=== PATIENT | female | born 1995 | race Asian ===

== ENCOUNTER 2018-01-07 18:36 | Emergency (ER) | payer BC ==
[~2018-01-07] VITALS: Ht 160 cm; Wt 57.6 kg
[2018-01-07 18:52] VITALS: BP_SYST 106
[2018-01-07] MEDS ORDERED: NACL 0.9% 1,000 ML IV ONE (21:19)
[2018-01-07 21:41] LABS: BASOPHILS % (AUTO) 0.1 % (0.0-2.0); EOSINOPHILS % (AUTO) 0.1 % (0.0-4.0); HEMATOCRIT 34.7 % (36-48); HEMOGLOBIN 11.7 g/dL (12.0-16.0); LYMPHOCYTES # (AUTO) 0.5 K/uL (1.0-5.5); LYMPHOCYTES % (AUTO) 5.7 % (20.5-51.5); MEAN CORPUSCULAR HEMOGLOBIN 31 pg (27-31); MEAN CORPUSCULAR HGB CONC 34 % (32-36); MEAN CORPUSCULAR VOLUME 92 fL (79.0-98.0); MONOCYTES # (AUTO) 0.3 K/uL (0.0-1.0); MONOCYTES % (AUTO) 3.1 % (1.7-9.3); NEUTROPHILS # (AUTO) 8.4 K/uL (1.8-7.7); PLATELET COUNT (AUTO) 194 K/uL (130-430); RED BLOOD CELL COUNT(AUTO) 3.78 MIL/uL (4.2-6.2); RED CELL DISTRIBUTION WIDTH 11.8 % (9.0-15.0); WHITE BLOOD COUNT (AUTO) 9.2 K/uL (4.8-10.8)
[2018-01-07 22:07] LABS: ALBUMIN 2.9 g/dL (3.4-4.8); CREATININE 0.53 mg/dL (0.55-1.30); POTASSIUM 3.4 mmol/L (3.5-5.1)
[2018-01-07 22:26] LABS: TOTAL BILIRUBIN 0.6 mg/dL (0.0-1.0)
[2018-01-07 23:19] LABS: BILIRUBIN,URINE NEGATIVE (NEGATIVE); BLOOD, URINE NEGATIVE (NEGATIVE); CLARITY/URINE CLEAR (CLEAR); COLOR,URINE YELLOW (YELLOW); GLUCOSE,URINE NEGATIVE (NEGATIVE); KETONES,URINE 3+ (NEGATIVE); LEUKOCYTE ESTERASE ,URINE TRACE (NEGATIVE); NITRITE, URINE NEGATIVE (NEGATIVE); PROTEIN URINE NEGATIVE (NEGATIVE); UROBILINOGEN,URINE 0.2 (0.2-1.0)
[2018-01-07 23:22] LABS: BACTERIA,URINE MODERATE /HPF (None Seen); RBC,URINE 0-3 /HPF (0-3)
[2018-01-07 23:23] LABS: MUCUS,URINE None Seen /LPF (None Seen)
[2018-01-07 23:53] VITALS: BP_SYST 112
== END 2018-01-07 23:53 | disposition home or self-care (01) ==
LOC: SED 18:36
DX: O21.9 Vomiting of pregnancy, unspecified (principal); Z3A.32 32 weeks gestation of pregnancy
CPT/HCPCS: 36415; 80053; 81000; 83690; 85025; 87086; 96360; 99284; J7030

== ENCOUNTER 2018-02-19 10:55 | Inpatient (IN) | payer OTHER, BC ==
[~2018-02-19] VITALS: Ht 160 cm; Wt 59.9 kg
[~2018-02-19 10:55] MED LIST: LIDOCAINE MPF 2% 5mL VIAL INJ ONE; LR 1,000 ML IV.SOLN IV ONE; MORPHINE SULFATE 10MG/10ML PF AMP EP ONE; NS IRRIG SOLN 1000 ML IR ONE; ONDANSETRON HCL 4 MG/2 ML VIAL IVP ONE; OXYTOCIN 10 UNIT/ML VIAL IV ONE
[2018-02-19] MEDS ORDERED: OXYTOCIN/0.9 % SODIUM CHLORIDE 1,000 ML IV SCH (12:23)
[2018-02-19] MEDS ORDERED: LR 1,000 ML IV ONE (12:23)
[2018-02-19] MEDS ORDERED: NALBUPHINE HCL 10 MG/ML AMP IVP PRN (12:30)
[2018-02-19] MEDS ORDERED: TERBUTALINE SULFATE 1 MG/ML VIAL SUBCUT ONE (13:16)
[2018-02-19] MEDS: LR 1,000 ML IV SCH (13:27)
[2018-02-19 13:32] VITALS: BP_SYST 105
[2018-02-19 14:18] LABS: HEMATOCRIT 35.3 % (36-48); HEMOGLOBIN 12.1 g/dL (12.0-16.0); MEAN CORPUSCULAR HEMOGLOBIN 32 pg (27-31); MEAN CORPUSCULAR HGB CONC 34 % (32-36); MEAN CORPUSCULAR VOLUME 93 fL (79.0-98.0); NEUTROPHILS % (AUTO) 78.7 % (40.0-70.0); PLATELET COUNT (AUTO) 213 K/uL (130-430); RED BLOOD CELL COUNT(AUTO) 3.81 MIL/uL (4.2-6.2); RED CELL DISTRIBUTION WIDTH 12.8 % (9.0-15.0); WHITE BLOOD COUNT (AUTO) 8.2 K/uL (4.8-10.8)
[2018-02-19 14:19] LABS: EOSINOPHILS % (AUTO) 0.6 % (0.0-4.0); LYMPHOCYTES # (AUTO) 1.4 K/uL (1.0-5.5); LYMPHOCYTES % (AUTO) 16.5 % (20.5-51.5); MONOCYTES # (AUTO) 0.3 K/uL (0.0-1.0); MONOCYTES % (AUTO) 4.2 % (1.7-9.3); NEUTROPHILS # (AUTO) 6.5 K/uL (1.8-7.7)
[2018-02-19] MEDS ORDERED: ROPIVACAINE 0.2% 100 ML ONE (19:32)
[2018-02-19] MEDS ORDERED: LR 500 ML IV ONE (19:32)
[2018-02-19] MEDS ORDERED: fentaNYL CITRATE/PF 100 MCG/2 ML AMP ONE (19:32)
[2018-02-19] MEDS ORDERED: FENT2mCg/mL-ROPIVA0.2%/NS EPID 150 ML EP SCH (19:45)
[2018-02-20] MEDS: LR 1,000 ML IV SCH ×2 (02:33→04:30)
[2018-02-20] MEDS ORDERED: ROPIVACAINE 0.2% 200 ML ONE (03:50)
[2018-02-20] MEDS ORDERED: CEFAZOLIN 2 GM IVPB PREMIX 50 ML IV ONE ×2 (07:00→07:18)
[2018-02-20] MEDS ORDERED: LR 1,000 ML IV SCH ×2 (07:56→08:46)
[2018-02-20] MEDS ORDERED: MEPERIDINE HCL/PF 25 MG/ML DISP.SYRIN IVP PRN (08:00)
[2018-02-20] MEDS ORDERED: METOCLOPRAMIDE HCL 10 MG/2 ML VIAL IVP PRN (08:00)
[2018-02-20] MEDS ORDERED: KETOROLAC TROMETHAMINE 60 MG/2 ML VIAL IM PRN (08:00)
[2018-02-20] MEDS ORDERED: MEPERIDINE HCL/PF 50 MG/ML AMP IVP PRN ×2 (08:00)
[2018-02-20] MEDS ORDERED: DIPHENHYDRAMINE INJ 50 MG/ML VIAL IM PRN (08:00)
[2018-02-20] MEDS ORDERED: ONDANSETRON HCL 4 MG/2 ML VIAL IVP PRN (08:00)
[2018-02-20] MEDS ORDERED: MORPHINE SULFATE 10MG/10ML PF AMP EP SCH (08:00)
[2018-02-20] MEDS ORDERED: NALOXONE HCL 0.4 MG/ML AMP (NARCAN) IVP PRN (08:00)
[2018-02-20 08:45] VITALS: BP_SYST 115
[2018-02-20] MEDS ORDERED: OXYTOCIN/0.9 % SODIUM CHLORIDE 1,000 ML IV ONE (08:46)
[2018-02-20] MEDS ORDERED: MEPERIDINE HCL/PF 50 MG/ML AMP IVP ONE (08:50)
[2018-02-20] MEDS ORDERED: MEPERIDINE HCL/PF 50 MG/ML AMP ONE (08:52)
[2018-02-20] MEDS ORDERED: LANOLIN 7 GM OINT. TP PRN (09:00)
[2018-02-20] MEDS ORDERED: DIPH-TET-PERTUS Vaccine 0.5 ML VIAL (ADACEL) I.M. PRN (09:00)
[2018-02-20] MEDS ORDERED: ANUSOL 1 EA SUPP.RECT (PREPARATION H) RC PRN (09:00)
[2018-02-20] MEDS ORDERED: ACETAMINOPHEN 325 MG TABLET PO PRN (09:00)
[2018-02-20] MEDS ORDERED: RHO(D) IMMUNE GLOBULIN/MALTOSE 1500 UNITS/1.3 ML (WINHRO) IM PRN (09:00)
[2018-02-20] MEDS ORDERED: BISACODYL 10 MG/SUPPOSITORY RC PRN (09:00)
[2018-02-20] MEDS ORDERED: MEASLES,MUMPS&RUBELLA VACC/PF 12500 UNIT/0.5 ML VIAL SUBQ PRN (09:00)
[2018-02-20] MEDS ORDERED: OXYCODONE/ACETAMINOPHEN 5-325 TABLET PO PRN (09:00)
[2018-02-20] MEDS ORDERED: TEMAZEPAM 15 MG CAPSULE PO PRN (21:00)
[2018-02-20] MEDS: IBUPROFEN 600 MG TABLET PO SCH (23:45)
[2018-02-21] MEDS: IBUPROFEN 600 MG TABLET PO SCH ×3 (05:52→17:47)
[2018-02-21] MEDS: DOCUSATE SODIUM 100 MG CAPSULE PO PRN ×2 (06:41→17:48)
[2018-02-21] MEDS: OXYCODONE/ACETAMINOPHEN 5-325 TABLET PO PRN ×2 (06:42→09:37)
[2018-02-21 07:08] LABS: BASOPHILS % (AUTO) 0.4 % (0.0-2.0); EOSINOPHILS # (AUTO) 0.1 K/uL (0.0-0.4); EOSINOPHILS % (AUTO) 0.9 % (0.0-4.0); HEMATOCRIT 28.3 % (36-48); HEMOGLOBIN 9.6 g/dL (12.0-16.0); LYMPHOCYTES # (AUTO) 1.1 K/uL (1.0-5.5); MEAN CORPUSCULAR HEMOGLOBIN 32 pg (27-31); MEAN CORPUSCULAR HGB CONC 34 % (32-36); MEAN CORPUSCULAR VOLUME 93 fL (79.0-98.0); MONOCYTES # (AUTO) 0.5 K/uL (0.0-1.0); MONOCYTES % (AUTO) 4.2 % (1.7-9.3); NEUTROPHILS # (AUTO) 10.6 K/uL (1.8-7.7); NEUTROPHILS % (AUTO) 85.5 % (40.0-70.0); PLATELET COUNT (AUTO) 173 K/uL (130-430); RED BLOOD CELL COUNT(AUTO) 3.02 MIL/uL (4.2-6.2); RED CELL DISTRIBUTION WIDTH 12.6 % (9.0-15.0)
[2018-02-21 07:10] LABS: WHITE BLOOD COUNT (AUTO) 12.3 K/uL (4.8-10.8)
[2018-02-21] MEDS: SIMETHICONE 80 MG TAB.CHEW PO PRN (17:45)
[2018-02-21] MEDS: SENNOSIDES/DOCUSATE SODIUM 1 TAB TABLET(SENOKOT-S) PO PRN (17:47)
[2018-02-22] MEDS: IBUPROFEN 600 MG TABLET PO SCH ×5 (00:03→23:51)
[2018-02-22] MEDS: SIMETHICONE 80 MG TAB.CHEW PO PRN (00:05)
[2018-02-22] MEDS: DOCUSATE SODIUM 100 MG CAPSULE PO PRN (17:39)
[2018-02-22] MEDS: OXYCODONE/ACETAMINOPHEN 5-325 TABLET PO PRN (21:39)
[2018-02-23] MEDS: IBUPROFEN 600 MG TABLET PO SCH ×2 (06:27→12:02)
[2018-02-23] MEDS: DOCUSATE SODIUM 100 MG CAPSULE PO PRN ×2 (06:27→12:01)
[2018-02-23] MEDS: SENNOSIDES/DOCUSATE SODIUM 1 TAB TABLET(SENOKOT-S) PO PRN (12:01)
[2018-02-23] MEDS: SIMETHICONE 80 MG TAB.CHEW PO PRN (12:02)
== END 2018-02-23 13:30 | disposition home or self-care (01) | DRG 765 ==
LOC: SPU 10:55 → OBSVTOIN 12:15
PROVIDERS: ADMIT Obstetrics & Gynecology; ATTEND Obstetrics & Gynecology
PROC: 3E033VJ Introduction of Other Hormone into Peripheral Vein, Percutaneous Approach (ICD-10-PCS; 2018-02-19)
PROC: 3E0R3BZ Introduction of Anesthetic Agent into Spinal Canal, Percutaneous Approach (ICD-10-PCS; 2018-02-19)
PROC: 00HU33Z Insertion of Infusion Device into Spinal Canal, Percutaneous Approach (ICD-10-PCS; 2018-02-19)
PROC: 10D00Z1 Extraction of Products of Conception, Low, Open Approach (ICD-10-PCS; principal; 2018-02-20 07:30)
DX: O76 Abnormality in fetal heart rate and rhythm complicating labor and delivery (principal); O41.03X0 Oligohydramnios, third trimester, not applicable or unspecified; O69.81X0 Labor and delivery complicated by cord around neck, without compression, not applicable or unspecified; Z37.0 Single live birth; Z3A.39 39 weeks gestation of pregnancy
CPT/HCPCS: 36415; 76815; 81002-TC; 85025; 86592; 86886; 86900; 86901; 94760; G0378; J0690; J2001; J2175; J2274; J2405; J2590; J2795; J3010; J3105; J7120